=== PATIENT | male | born 1970 | race Caucasian/White ===

== ENCOUNTER 2018-10-15 07:37 | Day surgery (SDC) | payer BC ==
[~2018-10-15 07:37] MED LIST: Lactated Ringers 1,000 ML IV SCH; Lidocaine 1%/Sod Bicarbonate in NS 8.4% 1 ML Syringe IDERM PRN; Sodium Chloride 0.9% 10 ML Syringe FLUSH PRN
--- NOTE | 2018-10-15 08:20 | PCM.PREANE ---
Preanesthetic Assessment - Anesthesia/Transfusion/Family Hx Anesthesia History: Prior Anesthesia Without Reaction Family History of Anesthesia Reaction: No Transfusion History: No Prior Transfusion(s) - Review of Systems General: No Symptoms, Other (obese) Pulmonary: Other (sleep apea, wears CPAP) Cardiovascular: No Symptoms, Other (HTN) Gastrointestinal: No Symptoms Neurological: No Symptoms Other: Reports: None - Physical Assessment NPO Status Date: 10/14/18 NPO Status Time: 23:00 Pulse: 53 O2 Sat by Pulse Oximetry: 95 Respiratory Rate: 16 Blood Pressure: 119/80 Vital Signs: Last Vital Signs Temp 37.1 C 10/15/18 07:50 Pulse 53 L 10/15/18 07:50 Resp 16 10/15/18 07:50 BP 119/80 10/15/18 07:50 Pulse Ox 95 10/15/18 07:50 Weight: 124.738 kg ASA Class: 2 Mental Status: Alert & Oriented x3 Airway Class: Mallampati = 2 Dentition: Reports: Normal Dentition Thyro-Mental Finger Breadths: 3 Mouth Opening Finger Breadths: 2 ROM/Head Extension: Full Lungs: Clear to Auscultation, Normal Respiratory Effort Cardiovascular: Regular Rate, Regular Rhythm - Allergies Allergies/Adverse Reactions: Allergies Allergy/AdvReac Type Severity Reaction Status Date / Time No Known Allergies Allergy Verified 10/13/18 19:14 - Blood Blood Available: No Product(s) Available: None - Anesthesia Plan Pre-Op Medication Ordered: None - Acknowledgements Anesthesia Type Planned: MAC Pt an Appropriate Candidate for the Planned Anesthesia: Yes Alternatives and Risks of Anesthesia Discussed w Pt/Guardian: Yes Pt/Guardian Understands and Agrees with Anesthesia Plan: Yes PreAnesthesia Questionnaire HEENT History: Reports: None Cardiovascular History: Reports: Hypertension Respiratory History: Reports: Sleep Apnea Gastrointestinal History: Reports: None Genitourinary History: Reports: Other (See Below) Other Genitourinary History: hypogonadism EMBEDDED CASE MANAGER History: Reports: None Musculoskeletal History: Reports: None Neurological History: Reports: None Psychiatric History: Reports: None Endocrine/Metabolic History: Reports: None Hematologic History: Reports: None Immunologic History: Reports: None Oncologic (Cancer) History: Reports: None Dermatologic History: Reports: None - Past Surgical History Head Surgeries/Procedures: Reports: None HEENT Surgical History: Reports: Tonsillectomy Cardiovascular Surgical History: Reports: None Respiratory Surgical History: Reports: None GI Surgical History: Reports: Hernia Repair/Other Female Surgical History: Reports: None Male Surgical History: Reports: None Neurological Surgical History: Reports: None Musculoskeletal Surgical History: Reports: None Oncologic Surgical History: Reports: None Dermatological Surgical History: Reports: None - SUBSTANCE USE Smoking Status *Q: Never Smoker Recreational Drug Use History: No - HOME MEDS Home Medications: Home Meds Lisinopril/Hydrochlorothiazide [Lisinopril-HCTZ 10-12.5 MG] 1 tab PO DAILY 10/13 [History] - CURRENT (IN HOUSE) MEDS Current Meds: Current Medications Lactated Ringer's (Ringers, Lactated) 1,000 mls @ 125 mls/hr IV ASDIRECTED BRANDON Stop: 10/15/18 23:00 Lidocaine/Sodium Bicarbonate (Buffered Lidocaine 1% In Ns 8.4%) 0.25 ml IDERM ONETIME PRN PRN Reason: Prior to IV Start Stop: 10/15/18 18:00 Sodium Chloride (Saline Flush) 10 ml FLUSH ASDIRECTED PRN PRN Reason: Keep Vein Open Stop: 10/15/18 18:00
[2018-10-15] MEDS ORDERED: Midazolam 1 MG/ML 2 ML SDV ONE (08:24)
[2018-10-15] MEDS ORDERED: Propofol 200 MG/20 ML SDV ONE (08:24)
--- NOTE | 2018-10-15 10:22 | PCM.OPNOTE ---
- General Post-Op/Procedure Note Date of Surgery/Procedure: 10/15/18 Operative Procedure(s): colonoaocopy to cecum Pre Op Diagnosis: screening colonoscopy Post-Op Diagnosis: Same Anesthesia Technique: MAC Primary Surgeon: Dustin Jones EBL in mLs: 0 Complications: None Condition: Good
--- NOTE | 2018-10-15 10:30 | PCM48HPAN ---
Post Anesthesia Note - EVALUATION WITHIN 48HRS OF ANESTHETIC Vital Signs in Normal Range: Yes Patient Participated in Evaluation: Yes Respiratory Function Stable: Yes Airway Patent: Yes Cardiovascular Function Stable: Yes Hydration Status Stable: Yes Pain Control Satisfactory: Yes Nausea and Vomiting Control Satisfactory: Yes Mental Status Recovered: Yes Pulse Rate: 55 SaO2: 95 Resp Rate: 12 Temperature: 36.8 C Blood Pressure: 126/80
--- NOTE | 2018-10-16 07:04 | OR ---
DATE OF OPERATION: 10/15/2018 SURGEON: Dustin Jones MD PREOPERATIVE DIAGNOSIS: Screening colonoscopy. POSTOPERATIVE DIAGNOSIS: Screening colonoscopy. OPERATION PERFORMED: Colonoscopy to cecum. FINDINGS: A normal study. RECOMMENDATION: Repeat colonoscopy in 10 years. ANESTHESIA: Procedure under IV sedation. DESCRIPTION OF PROCEDURE: The patient taken to the endoscopy room, placed in the supine position, connected to monitoring equipment, and again given IV sedation. Placed in the left lateral position. Perianal area was inspected, it was normal. Rectal exam showed good sphincter tone. Video Olympus colonoscope was then introduced into the rectum, threaded up without problem to the cecum, and the appendicular orifice was noted and photographed. Prep was excellent. [place] Cleansing Score grade A and the scope was slowly withdrawn showing the cecum, ascending colon, transverse colon, descending colon, sigmoid colon, and rectum. The patient tolerated the procedure and will be followed up in the clinic and with his family doctor as needed. ESTIMATED BLOOD LOSS: MMODAL /[id number]
== END 2018-10-15 11:10 | disposition home or self-care (01) ==
LOC: JD.SDS 07:37
PROVIDERS: ATTEND Surgery
DX: Z12.11 Encounter for screening for malignant neoplasm of colon (principal); I10 Essential (primary) hypertension; G47.33 Obstructive sleep apnea (adult) (pediatric); E29.1 Testicular hypofunction; E66.9 Obesity, unspecified; Z68.41 Body mass index [BMI] 40.0-44.9, adult; Z79.899 Other long term (current) drug therapy; Z99.89 Dependence on other enabling machines and devices
CPT/HCPCS: 00812; J2250; J2704; J7120